=== PATIENT | female | born 1965 | race African-American/Black ===

== ENCOUNTER 2024-02-28 03:59 | Emergency (ER) | payer MEDICAID ==
[~2024-02-28] VITALS: Ht 172.7 cm; Wt 90.3 kg
[~2024-02-28 03:59] MED LIST: AMLODIPINE; ASPI-1160 PO; ATOR10TA69 MT; COR3 PO; DIPH25CA83 PO; LIP40 PO; NORCO; VALIUM
[2024-02-28 04:05] VITALS: O2SAT 99
[2024-02-28 04:06] VITALS: BP 185/105; PULSE 85; RESP 17; TEMP 98.7; O2SAT 98
[2024-02-28 04:33] LABS: BASOPHILS % 1.5 % (0.0-2.0); EOSINOPHILS % 0.7 % (0.0-5.0); HEMATOCRIT. 41.6 % (36.0-48.0); HEMOGLOBIN. 13.5 g/dL (12.0-16.0); LYMPHOCYTES % 39.4 % (20.0-50.0); MEAN CORPUSCULAR HEMOGLOBIN 28.3 pg (28.0-32.0); MEAN CORPUSCULAR HGB CONC 32.5 g/dL (31.0-37.0); MEAN CORPUSCULAR VOLUME 87.2 fL (81.0-99.0); MEAN PLATELET VOLUME 7.4 fl (7.4-10.4); MONOCYTES % 10.9 % (2.0-8.0); NEUTROPHILS % 47.5 % (40.0-76.0); PLATELET 276 x1000/uL (130-400); RED BLOOD CELL COUNT 4.77 mill/uL (4.2-5.4); RED CELL DISTRIBUTION WIDTH 14.7 % (11.6-14.6); WHITE BLOOD COUNT 4.7 x1000/uL (4.5-11.0)
[2024-02-28 04:44] LABS: CHLORIDE 112 mEq/L (98-107); POTASSIUM 3.3 mEq/L (3.5-5.1); SODIUM 143 mEq/L (136-145)
[2024-02-28 04:45] LABS: CALCIUM 9.2 mg/dL (8.7-10.4); CARBON DIOXIDE 26 mEq/L (21-32)
[2024-02-28 04:49] LABS: CREATININE 0.9 mg/dL (0.6-1.0)
[2024-02-28 04:50] LABS: GLUCOSE 94 mg/dL (70-105); UREA NITROGEN BLOOD 16 mg/dL (9-23)
[2024-02-28 04:52] LABS: ALANINE AMINOTRANSFERASE 13 IU/L (10-49); ALBUMIN 4.5 g/dL (3.2-4.8); ASPARTATE AMINOTRANSFERASE 20 IU/L (<34); BILIRUBIN DIRECT 0.1 mg/dL (<=3.0); BILIRUBIN TOTAL 0.4 mg/dL (0.1-1.0); PROTEIN TOTAL 7.1 g/dL (6.0-8.3)
[2024-02-28] MEDS ORDERED: METHOCARBAMOL 500MG TABLET PO ONE (05:30)
== END 2024-02-28 06:01 | disposition left against medical advice (07) ==
LOC: ER 04:27
DX: M54.6 Pain in thoracic spine (principal); R30.0 Dysuria; E78.00 Pure hypercholesterolemia, unspecified; I10 Essential (primary) hypertension; F12.90 Cannabis use, unspecified, uncomplicated; Z79.899 Other long term (current) drug therapy; Z86.73 Personal history of transient ischemic attack (TIA), and cerebral infarction without residual deficits; Z88.0 Allergy status to penicillin
CPT/HCPCS: 36415; 80048; 80076; 85025; 93005; 99284